=== PATIENT | female | born 1990 | race Caucasian/White ===

== ENCOUNTER 2021-05-28 07:53 | Emergency (ER) | payer BC ==
[~2021-05-28 07:53] MED LIST: PRENATABS FA T1 EACH PO
[2021-05-28 08:37] LABS: HEMOGLOBIN 13.8 gm/dl (12.3-15.3); RED BLOOD COUNT 4.72 M/UL (4.00-5.10); WHITE BLOOD COUNT 8.8 K/UL (4.5-11.0)
[2021-05-28 08:47] LABS: BUN/CREATININE RATIO 17 (0-10)
[2021-05-28] MEDS ORDERED: ADULT GLYCERIN1 EACH PR (09:43)
[2021-05-28] MEDS ORDERED: COLACE CLEAR50 MG PO (09:43)
[2021-05-28] MEDS ORDERED: ZOFRAN ODT 4 MG4 MG SL (09:43)
[2021-05-28] MEDS ORDERED: BENTYL 20MG TAB20 MG PO (09:43)
[2021-05-28] MEDS ORDERED: CITRATE OF MAG296 ML PO (09:43)
== END 2021-05-28 10:26 | disposition home or self-care (01) ==
LOC: ER1 07:53
PROVIDERS: Physician Assistant Medical
DX: K59.00 Constipation, unspecified (principal); R11.2 Nausea with vomiting, unspecified
CPT/HCPCS: 74018; 80053; 81001; 83605; 84703; 85025; 85652; 86140; 87086; 96374; 99284; J2405

== ENCOUNTER 2021-06-23 19:16 | Emergency (ER) | payer BC ==
[~2021-06-23 19:16] MED LIST changes: +ADULT GLYCERIN1 EACH PR; +BENTYL 20MG TAB20 MG PO; +CITRATE OF MAG296 ML PO; +COLACE CLEAR50 MG PO; +ZOFRAN ODT 4 MG4 MG SL
== END 2021-06-23 21:00 | disposition home or self-care (01) ==
LOC: ER1 19:16
DX: S86.812A Strain of other muscle(s) and tendon(s) at lower leg level, left leg, initial encounter (principal); Y93.44 Activity, trampolining; X50.9XXA Other and unspecified overexertion or strenuous movements or postures, initial encounter
CPT/HCPCS: 73564; 99283

== ENCOUNTER → 2021-06-30 | Outpatient (CLI) | payer BC | LOC: EMI 10:57 | DX: S83.512A Sprain of anterior cruciate ligament of left knee, initial encounter (principal); S83.511A Sprain of anterior cruciate ligament of right knee, initial encounter; M71.22 Synovial cyst of popliteal space [Baker], left knee; R93.6 Abnormal findings on diagnostic imaging of limbs | CPT/HCPCS: 73721 ==

== ENCOUNTER → 2021-08-15 | Outpatient (CLI) | payer BC ==
[2021-08-16 08:16] LABS: THYROXINE (T4) 12.4 ug/dL (4.5-12.0); TRIIODOTHYRONINE (T3) 118 ng/dL (71-180)
[2021-08-16 09:16] LABS: RHEUMATOID ARTHRITIS FACTOR <10.0 IU/mL (<14.0)
[2021-08-18 15:11] LABS: ANTI-DSDNA ANTIBODIES <1 IU/mL (0-9); SJOGREN'S ANTI-SS-A <0.2 AI (0.0-0.9); SJOGREN'S ANTI-SS-B <0.2 AI (0.0-0.9)
== END ==
LOC: LAB 13:40
PROVIDERS: Nurse Practitioner Family
DX: Z13.0 Encounter for screening for diseases of the blood and blood-forming organs and certain disorders involving the immune mechanism (principal); L30.9 Dermatitis, unspecified; R53.83 Other fatigue
CPT/HCPCS: 36415; 82728; 83540; 83550; 84436; 84439; 84443; 84480; 84481; 84550; 85652; 86038; 86140; 86200; 86225; 86235; 86431

== ENCOUNTER → 2021-11-13 | Outpatient (CLI) | payer BC | LOC: LAB 17:48 | DX: R21 Rash and other nonspecific skin eruption (principal) | CPT/HCPCS: 82785 ==

== ENCOUNTER → 2021-11-21 | Outpatient (CLI) | payer BC ==
[2021-11-21 08:07] LABS: HEMOGLOBIN 12.6 gm/dl (12.3-15.3); RED BLOOD COUNT 4.32 M/UL (4.00-5.10)
[2021-11-21 08:25] LABS: BUN/CREATININE RATIO 17 (0-10)
[2021-11-22 10:14] LABS: COMPLEMENT C3, SERUM 107 mg/dL (82-167); COMPLEMENT C4, SERUM 27 mg/dL (12-38)
[2021-11-24 14:11] LABS: ALDOLASE 6.7 U/L (3.3-10.3)
== END ==
LOC: EROP 07:21
PROVIDERS: Nurse Practitioner Family
DX: R21 Rash and other nonspecific skin eruption (principal); R76.8 Other specified abnormal immunological findings in serum
CPT/HCPCS: 80053; 81001; 82085; 82550; 85025; 85652; 86038; 86140; 86160; 86255